=== PATIENT | female | born 1940 | race Caucasian/White ===

== ENCOUNTER 2024-05-03 13:05 | Emergency (ER) | payer MEDICARE ==
[~2024-05-03 13:05] MED LIST: Iopamidol 370 76% 100 ML VIAL ONE
[2024-05-03 14:31] LABS: Hematocrit 42.6 % (36.0-47.0); Hemoglobin 13.8 g/dL (12.0-16.0); Mean Corpuscular HGB CONC 32.3 g/dL (32.0-36.0); Mean Corpuscular Hemoglobin 28.3 pg (27.0-31.0); Mean Corpuscular Volume 87.6 fl (78.0-98.0); Mean Platelet Volume 6.3 fL (7.4-10.4); Platelet Count 240 10x3/uL (130-400); RBC Distribution Width 11.8 % (11.5-14.5); Red Blood Cell (RBC) Count 4.86 mill/uL (4.20-5.40); White Blood Cell (WBC) Count 14.7 10x3/uL (4.8-10.8)
[2024-05-03 14:32] LABS: Prothrombin Time 13.5 sec (12.0-14.7)
[2024-05-03 14:33] LABS: PTT 25.2 sec (22.9-36.1)
[2024-05-03] MEDS ORDERED: Aspirin 300 MG Suppository ONE (14:35)
[2024-05-03 14:37] LABS: Lymphocytes 4 % (21-51); MDiff Complete? YES; Manual Diff?? YES; Monocytes 3 % (0-10); Neutrophil 85 % (42-75); Reactive Lymphocytes 8 % (0-10)
[2024-05-03 14:38] LABS: Platelet Adequacy Comment Appears Adequate; RBC Morph Comment Within Normal Limits
[2024-05-03 15:01] LABS: Anion Gap 23 mmol/L (10-20); BUN (Urea Nitrogen) 21 mg/dL (9.8-20.1); Calc. Creatinine Clearance 0 mL/min (70-130); Carbon Dioxide 18 mmol/L (23-31); Chloride 104 mmol/L (98-107); Potassium 3.5 mmol/L (3.5-5.1); Sodium 141 mmol/L (136-145)
[2024-05-03 15:02] LABS: ALT (SGPT) 11 U/L (Less than 34); AST (SGOT) 28 U/L (11-34); Albumin 4.1 g/dL (3.1-4.5); Alkaline Phosphatase 66 U/L (40-110); Bilirubin, Total 0.6 mg/dL (0.3-1.2); Calcium 9.2 mg/dL (7.8-10.44); Estimated GFR 49; Glucose 92 mg/dL (83-110); Protein, Total 7.1 g/dL (5.8-8.1)
[2024-05-03] MEDS ORDERED: cefTRIAXone (ROCEPHIN) 2 GM VIAL ONE (16:08)
[2024-05-03] MEDS ORDERED: Sodium Chloride 0.9% 1,000 ML ONE (16:08)
[2024-05-03] MEDS ORDERED: Sodium Chloride 0.9% 100 ML ONE (16:08)
[2024-05-03 16:46] LABS: Bilirubin Small (Negative); Blood, Urine Small (Negative); Clarity Clear (Clear); Glucose, Urine (Dipstick) Negative (Negative); Ketone, Urine > or equal to 80 mg/dL (Negative); Leukocyte Negative (Negative); Nitrite Negative (Negative); Protein, Urine (Dipstick) 100 mg/dL (Neg-Trace); Specific Gravity, Urine 1.015 (1.005-1.030); Urobilinogen 0.2 mg/dL (Less than 2); pH, Urine 5.5 (5.0-9.0)
[2024-05-03 16:49] LABS: Bacteria/HPF Rare-Few HPF (None Seen); CAUTI Indications for Culture Pelvic or flank pain; Mucous/LPF 1+ LPF (<2+); Squamous Epithelial 0-3 HPF (0-3); WBC/HPF 0-3 HPF (0-3)
[2024-05-03 16:50] LABS: Urine Culture Reflex No No
[2024-05-03] MEDS ORDERED: Sodium Chloride 0.9% 250 ML 500 ML ONE (22:11)
== END 2024-05-03 21:23 | disposition short-term general hospital (02) ==
LOC: MADERS 13:05
DX: I63.9 Cerebral infarction, unspecified (principal); R47.81 Slurred speech; R29.810 Facial weakness; R47.1 Dysarthria and anarthria; I10 Essential (primary) hypertension; R29.705 NIHSS score 5; D72.829 Elevated white blood cell count, unspecified
CPT/HCPCS: 0042T; 36415; 36416; 51701; 70450; 71045; 80053; 81001; 83605; 84484; 85025; 85610; 85730; 87040; 87086; 93005; 94760; 96365; J0696; J7030; J7050; Q9967